=== PATIENT | female | born 1955 | race Asian ===

== ENCOUNTER 2017-11-18 05:49 | Day surgery (SDC) | payer MEDICAID ==
[~2017-11-18] VITALS: Ht 165.1 cm; Wt 54.4 kg
[2017-11-18] MEDS ORDERED: METF500T2 PO (08:00)
[2017-11-18] MEDS ORDERED: NAPR-54 PO (08:00)
[2017-11-18] MEDS ORDERED: BENA20TA PO (08:00)
[2017-11-18] MEDS ORDERED: ORE25 PO (08:00)
[2017-11-18] MEDS ORDERED: ONDANSETRON 4 MG/2 ML VIAL ONE (08:11)
[2017-11-18] MEDS ORDERED: LIDOCAINE 2% 100 MG/5 ML UJET TP ONE (08:12)
[2017-11-18] MEDS ORDERED: KETOROLAC 30 MG/ML VIAL ONE (08:12)
[2017-11-18] MEDS ORDERED: fentaNYL 0.05 MG/ML VIAL ONE (08:27)
[2017-11-18] MEDS ORDERED: MIDAZOLAM 2 MG/2 ML VIAL ONE ×2 (08:27)
[2017-11-18] MEDS ORDERED: LORA10TA19 PO (08:45)
[2017-11-18] MEDS ORDERED: OMEP20TC12 PO (08:45)
[2017-11-18] MEDS ORDERED: GLIM4TAB2 PO (08:45)
[2017-11-18] MEDS ORDERED: METO-485 PO (08:45)
[2017-11-18] MEDS ORDERED: LORA5SOL3 PO (08:45)
== END 2017-11-18 09:28 | disposition home or self-care (01) ==
LOC: MDS 05:49 → MMU 05:49 → MDS 09:28
PROVIDERS: ATTEND Internal Medicine Gastroenterology
DX: Z12.11 Encounter for screening for malignant neoplasm of colon (principal); K62.1 Rectal polyp; E78.5 Hyperlipidemia, unspecified; I10 Essential (primary) hypertension; E11.9 Type 2 diabetes mellitus without complications; M19.90 Unspecified osteoarthritis, unspecified site; Z79.1 Long term (current) use of non-steroidal anti-inflammatories (NSAID); Z90.49 Acquired absence of other specified parts of digestive tract; Z79.84 Long term (current) use of oral hypoglycemic drugs; Z79.899 Other long term (current) drug therapy
CPT/HCPCS: 45378; 82948; J2250; J2405; J7030; J1885; J3010